=== PATIENT | female | born 1985 | race African-American/Black ===

== ENCOUNTER 2016-10-30 22:32 | Emergency (ER) | payer MEDICAID, MEDICARE, OTHER ==
[~2016-10-30] VITALS: Ht 167.6 cm; Wt 97.0 kg
[~2016-10-30 22:32] MED LIST: Z.0.NO CURRENT MEDS
[2016-10-30 22:33] VITALS: BP 118/68; PULSE 93; RESP 16; TEMP 99.7; O2SAT 100
[2016-10-31 01:41] VITALS: BP 142/82; PULSE 65; RESP 14; O2SAT 99
--- NOTE | 2016-10-31 02:20 | PD ---
HPI Chief Complaint: Dysuria Time Seen by Provider: 01:54 Travel History International Travel<30 days: No Contact w/Intl Traveler<30days: No Traveled to known affect area: No History of Present Illness HPI 31yo F presents to the ED with c/o dysuria, chills/fever, and vaginal discharge that is white. States her menstrual period is due November 03 and today she started having vaginal bleeding. Denies any chest pain, sob, n/v, abdominal pain. PFSH Past Medical History Asthma: Yes Diminished Hearing: No Tetanus Vaccination: Unknown Influenza Vaccination: No ?: Unknown : 3 Para: 2 Miscarriage: 0 : 1 Past Surgical History Tonsillectomy: Yes Social History Alcohol Use: Yes (occ) Tobacco Use: Yes Substance Use: No Allergies-Medications (Allergen,Severity, Reaction): Coded Allergies: Percocet (Verified Allergy, Severe, "ITCHING", 10/31/16) Reported Meds & Prescriptions Reported Meds & Active Scripts Active Metronidazole 500 Mg Tab 500 Mg PO BID 7 Days Doxycycline Hyclate 100 Mg Cap 100 Mg PO BID 14 Days Review of Systems Except as stated in HPI: all other systems reviewed are Neg Physical Exam Narrative GENERAL: 31yo F not in distress. SKIN: Focused skin assessment warm/dry. HEAD: Atraumatic. Normocephalic. CARDIOVASCULAR: Regular rate and rhythm. No murmur appreciated. RESPIRATORY: No accessory muscle use. Clear to auscultation. Breath sounds equal bilaterally. GASTROINTESTINAL: Abdomen soft, non-tender, nondistended. No rebound tenderness or guarding. PELVIC: +Yellow discharge from cervix. Dry blood in vaginal vault. +CMT. No adnexal tenderness bilaterally. MUSCULOSKELETAL: No obvious deformities. No clubbing. No cyanosis. No edema. NEUROLOGICAL: Awake and alert. No obvious cranial nerve deficits. Motor grossly within normal limits. Normal speech. PSYCHIATRIC: Appropriate mood and affect; insight and judgment normal. Data Data Last Documented VS Vital Signs Date Time Temp Pulse Resp B/P Pulse Ox O2 Delivery O2 Flow Rate FiO2 10/31/16 02:54 83 16 132/82 98 Room Air 10/30/16 22:33 99.7 Orders Complete Blood Count With Diff (10/31/16 02:02) Basic Metabolic Panel (Bmp) (10/31/16 02:02) Urinalysis - C+S If Indicated (10/31/16 02:02) Ed Urine Pregnancytest Poc (10/31/16 02:02) Gc And Chlamydia Pcr (10/31/16 02:17) Wet Prep Profile (10/31/16 02:17) Azithromycin Powd Pack (Zithromax Powd P (10/31/16 02:45) Ceftriaxone Inj (Rocephin Inj) (10/31/16 02:45) Lidocaine 1% Inj (50 Ml) (Xylocaine 1% I (10/31/16 02:45) Urine Culture (10/31/16 01:45) Metronidazole (Flagyl) (10/31/16 04:15) Us Pelvis Comp [employer] Database Specialist/Non-Preg (10/31/16 ) Labs Laboratory Tests Test 10/31/16 10/31/16 10/31/16 01:40 01:45 02:40 White Blood Count 21.6 TH/MM3 Red Blood Count 3.90 MIL/MM3 Hemoglobin 12.3 GM/DL Hematocrit 36.0 % Mean Corpuscular Volume 92.5 FL Mean Corpuscular Hemoglobin 31.5 PG Mean Corpuscular Hemoglobin 34.1 % Concent Red Cell Distribution Width 14.3 % Platelet Count 216 TH/MM3 Mean Platelet Volume 9.2 FL Neutrophils (%) (Auto) 81.3 % Lymphocytes (%) (Auto) 14.7 % Monocytes (%) (Auto) 3.7 % Eosinophils (%) (Auto) 0.1 % Basophils (%) (Auto) 0.2 % Neutrophils # (Auto) 17.5 TH/MM3 Lymphocytes # (Auto) 3.2 TH/MM3 Monocytes # (Auto) 0.8 TH/MM3 Eosinophils # (Auto) 0.0 TH/MM3 Basophils # (Auto) 0.0 TH/MM3 CBC Comment DIFF FINAL Differential Comment Sodium Level 139 MEQ/L Potassium Level 3.4 MEQ/L Chloride Level 105 MEQ/L Carbon Dioxide Level 27.1 MEQ/L Anion Gap 7 MEQ/L Blood Urea Nitrogen 10 MG/DL Creatinine 1.16 MG/DL Estimat Glomerular Filtration 66 ML/MIN Rate Random Glucose 85 MG/DL Calcium Level 8.9 MG/DL Urine Color YELLOW Urine Turbidity HAZY Urine pH 6.0 Urine Specific [place] 1.027 Urine Protein 30 mg/dL Urine Glucose (UA) NEG mg/dL Urine Ketones NEG mg/dL Urine Occult Blood LARGE Urine Nitrite NEG Urine Bilirubin NEG Urine Urobilinogen 2.0 MG/DL Urine Leukocyte Esterase LARGE Urine RBC 47 /hpf Urine WBC 39 /hpf Urine Squamous Epithelial 10 /hpf Cells Urine Bacteria RARE /hpf Urine Hyaline Casts 1 /lpf Urine Mucus FEW /lpf Microscopic Urinalysis Comment CULTURE INDICATED Clue Cells (Wet Prep) NONE SEEN Vaginal Trichomonas (Wet Prep) PRESENT Vaginal Yeast (Wet Prep) NONE SEEN Chlamydia trachomatis DNA DETECTED (PCR) Neisseria gonorrhoeae DNA NOT DETECTED (PCR) MDM Medical Decision Making Medical Screen Exam Complete: Yes Emergency Medical Condition: Yes Interpretation(s) Laboratory Tests Test 10/31/16 10/31/16 10/31/16 01:40 01:45 02:40 White Blood Count 21.6 TH/MM3 (4.0-11.0) Red Blood Count 3.90 MIL/MM3 (4.00-5.30) Hemoglobin 12.3 GM/DL (11.6-15.3) Hematocrit 36.0 % (35.0-46.0) Mean Corpuscular Volume 92.5 FL (80.0-100.0) Mean Corpuscular Hemoglobin 31.5 PG (27.0-34.0) Mean Corpuscular Hemoglobin 34.1 % Concent (32.0-36.0) Red Cell Distribution Width 14.3 % (11.6-17.2) Platelet Count 216 TH/MM3 (150-450) Mean Platelet Volume 9.2 FL (7.0-11.0) Neutrophils (%) (Auto) 81.3 % (16.0-70.0) Lymphocytes (%) (Auto) 14.7 % (9.0-44.0) Monocytes (%) (Auto) 3.7 % (0.0-8.0) Eosinophils (%) (Auto) 0.1 % (0.0-4.0) Basophils (%) (Auto) 0.2 % (0.0-2.0) Neutrophils # (Auto) 17.5 TH/MM3 (1.8-7.7) Lymphocytes # (Auto) 3.2 TH/MM3 (1.0-4.8) Monocytes # (Auto) 0.8 TH/MM3 (0-0.9) Eosinophils # (Auto) 0.0 TH/MM3 (0-0.4) Basophils # (Auto) 0.0 TH/MM3 (0-0.2) CBC Comment DIFF FINAL Differential Comment Sodium Level 139 MEQ/L (136-145) Potassium Level 3.4 MEQ/L (3.5-5.1) Chloride Level 105 MEQ/L (98-107) Carbon Dioxide Level 27.1 MEQ/L (21.0-32.0) Anion Gap 7 MEQ/L (5-15) Blood Urea Nitrogen 10 MG/DL (7-18) Creatinine 1.16 MG/DL (0.50-1.00) Estimat Glomerular Filtration 66 ML/MIN (>89) Rate Random Glucose 85 MG/DL (74-106) Calcium Level 8.9 MG/DL (8.5-10.1) Urine Color YELLOW (YELLW/STRAW) Urine Turbidity HAZY (CLEAR) Urine pH 6.0 (5.0-8.5) Urine Specific [place] 1.027 (1.002-1.035) Urine Protein 30 mg/dL (NEG-TRACE) Urine Glucose (UA) NEG mg/dL (NEG) Urine Ketones NEG mg/dL (NEG) Urine Occult Blood LARGE (NEG) Urine Nitrite NEG (NEG) Urine Bilirubin NEG (NEG) Urine Urobilinogen 2.0 MG/DL (LESS THAN 2.0) Urine Leukocyte Esterase LARGE (NEG) Urine RBC 47 /hpf (0-3) Urine WBC 39 /hpf (0-5) Urine Squamous Epithelial 10 /hpf (0-5) Cells Urine Bacteria RARE /hpf (NONE) Urine Hyaline Casts 1 /lpf (RARE) Urine Mucus FEW /lpf (OCC) Microscopic Urinalysis Comment CULTURE INDICATED Clue Cells (Wet Prep) NONE SEEN (NONE) Vaginal Trichomonas (Wet Prep) PRESENT (NONE) Vaginal Yeast (Wet Prep) NONE SEEN (NONE) Chlamydia trachomatis DNA DETECTED (NOT (PCR) DETECT) Neisseria gonorrhoeae DNA NOT DETECTED (PCR) (NOT DETECT) Last Impressions Pelvis Ultrasound 10/31/16 0000 Signed Impressions: Service Date/Time: Monday, October 31, 2016 05:18 - CONCLUSION: Within normal limits. Kiran Montanez MD Differential Diagnosis PID vs. Bacterial vaginosis vs. Trichomoniasis Narrative Course 31yo nontoxic appearing female here with vaginal discharge and dysuria. Pt is afebrile and has no abdominal tenderness. +Yellow discharge in pelvic exam with some cervical motion tenderness. Pt given ceftriaxone 250IM with lidocaine and azithromycin 1000mg. Labs reviewed, leukocytosis at 21.6. Creatinine at 1.16 at baseline. UA showed large blood and leukocyte. WBC 39. Wet prep showed positive trichomonas. Pt given metronidazole 500mg PO. Although pt had no abdominal pain, I did do ultrasound of pelvis to r/o any tubo ovarian abscess since WBC is elevated. Pelvic US within normal limits. Pt is well appearing and can go home. Diagnosis Primary Impression: PID (acute pelvic inflammatory disease) Patient Instructions: General Instructions Departure Forms: Tests/Procedures Additional Instructions: Please follow up with your [facility] in 3-7 days. Return to the ED if you have worsening pain, vomiting or fever. Med/Other Pt SpecificInfo: Prescription(s) given Scripts Metronidazole 500 Mg Tin191 Mg PO BID 7 Days Ref 0 Prov:Carolann Rivas DO 10/31/16 Doxycycline Hyclate 100 Mg Urh150 Mg PO BID 14 Days Ref 0 Prov:Carolann iRvas DO 10/31/16 Disposition: 01 DISCHARGE HOME Condition: Stable Carolann Rivas DO Oct 31, 2016 02:20
[2016-10-31 02:26] LABS: AUTOMATED NEUTROPHIL # 17.5 TH/MM3 (1.8-7.7); BASOPHIL % 0.2 % (0.0-2.0); EOSINOPHIL % 0.1 % (0.0-4.0); HEMO FLAGS DIFF FINAL; LYMPH % 14.7 % (9.0-44.0); LYMPHOCYTE # 3.2 TH/MM3 (1.0-4.8); MEAN CELL VOLUME 92.5 FL (80.0-100.0); MEAN CORPUSCULAR HEMOGLOBIN 31.5 PG (27.0-34.0); MEAN CORPUSCULAR HGB CONC 34.1 % (32.0-36.0); MONO % 3.7 % (0.0-8.0); NEUT % 81.3 % (16.0-70.0); PLATELET COUNT 216 TH/MM3 (150-450); RED CELL DISTRIBUTION WIDTH 14.3 % (11.6-17.2); WHITE BLOOD COUNT 21.6 TH/MM3 (4.0-11.0)
[2016-10-31 02:42] LABS: BACTERIA, URINE RARE /hpf; BLOOD, URINE LARGE (NEG); COMMENT (UR) CULTURE INDICATED; CULTURE IF INDICATED CULTURE INDICATED; GLUCOSE,URINE NEG (NEG); HYALINE CAST, URINE 1 /lpf (RARE); KETONE, URINE NEG (NEG); MUCUS URINE FEW /lpf (OCC); NITRITE,URINE NEG (NEG); SQUAMOUS EPITHELIAL CELL URINE 10 /hpf (0-5); URINE COLOR YELLOW (YELLW/STRAW)
[2016-10-31 02:42] LABS: BICARBONATE 27.1 MEQ/L (21.0-32.0); POTASSIUM 3.4 MEQ/L (3.5-5.1)
[2016-10-31] MEDS ORDERED: cefTRIAXone 250 MG VIAL IM ONE (02:45)
[2016-10-31] MEDS ORDERED: LIDOCAINE HCL 1% 50 ML VIAL IM ONE (02:45)
[2016-10-31] MEDS ORDERED: AZITHROMYCIN PWD FOR SUSP 1 GM PACKET PO ONE (02:45)
[2016-10-31 02:54] VITALS: BP 132/82; PULSE 83; RESP 16; O2SAT 98
[2016-10-31] MEDS ORDERED: metroNIDAZOLE 500 MG TAB PO ONE (04:15)
[2016-10-31 05:31] LABS: CHLAMYDIA PCR DETECTED (NOT DETECT); NEISSERIA PCR NOT DETECTED (NOT DETECT)
--- NOTE | 2016-10-31 06:16 | RADRPT ---
EXAM DATE/TIME: 10/31/2016 05:18 [facility] COMPARISON: No previous studies available for comparison. INDICATIONS : Pelvic pain. MEDICAL HISTORY : . Asthma. SURGICAL HISTORY : Tonsillectomy. ENCOUNTER: Initial ACUITY: 1 day PAIN SCORE: 3/10 LOCATION: Bilateral pelvis MEASUREMENTS: UTERUS: 8.0 x 5.9 x 5.0 cm ENDOMETRIAL STRIPE: 7 mm RIGHT OVARY: 3.6 x 2.5 x 2.4 cm LEFT OVARY: 3.5 x 2.1 x 1.2 cm FINDINGS: UTERUS: The myometrium has homogeneous echotexture without mass. RIGHT OVARY: Ovary contains no mass or significant cystic lesion.Blood flow demonstrated. LEFT OVARY: Ovary contains no mass or significant cystic lesion. Blood flow demonstrated. MISCELLANEOUS: No free or loculated fluid. CONCLUSION: Within normal limits. Kiran Montanez MD on October 31, 2016 at 6:12 Board Certified Radiologist. This report was verified electronically.
[2016-10-31] MEDS ORDERED: DOXY100C PO (06:56)
[2016-10-31] MEDS ORDERED: METR500T10 PO (06:56)
== END 2016-10-31 07:37 | disposition home or self-care (01) ==
LOC: NEPE 22:32
DX: N73.0 Acute parametritis and pelvic cellulitis (principal); B96.89 Other specified bacterial agents as the cause of diseases classified elsewhere
CPT/HCPCS: 76856; 80048; 81001; 84703; 85025; 87086; 87210; 87491; 87591; 96372; 99284; J0696